=== PATIENT | female | born 1965 ===

== ENCOUNTER 2019-12-07 16:26 | Outpatient (REF) | payer SELFPAY ==
[2019-12-10 20:23] LABS: COVID-19 RT-PCR Result NEGATIVE (Negative)
== END 2019-12-07 16:46 ==
LOC: NCHCN 16:26
PROVIDERS: Visit Provider Nurse Practitioner Family
DX: Z20.828 Contact with and (suspected) exposure to other viral communicable diseases (principal)
CPT/HCPCS: U0003

== ENCOUNTER 2019-12-26 14:15 | Outpatient (REF) | payer SELFPAY ==
[2019-12-28 16:59] LABS: SARS-CoV-2 RNA Not Detected (NotDetected); SARS-CoV-2 RNA Source Nasal/Nares
== END 2019-12-26 14:35 ==
LOC: NCHCN 14:15
PROVIDERS: Visit Provider Family Medicine
DX: Z20.828 Contact with and (suspected) exposure to other viral communicable diseases (principal)
CPT/HCPCS: U0003

== ENCOUNTER 2020-01-11 13:10 | Outpatient (REF) | payer SELFPAY ==
[2020-01-14 12:58] LABS: SARS-CoV-2 RNA Not Detected (NotDetected); SARS-CoV-2 RNA Source Nasal/Nares
== END 2020-01-11 13:30 ==
LOC: NCHCN 13:10
PROVIDERS: Visit Provider Nurse Practitioner Family
DX: Z20.828 Contact with and (suspected) exposure to other viral communicable diseases (principal)
CPT/HCPCS: U0003